=== PATIENT | male | born 1950 | race Caucasian/White ===

== ENCOUNTER → 2017-03-13 | Day surgery (SDC) | payer MEDICARE, OTHER ==
[2017-03-11 14:55] LABS: BASOPHILS % 0.2 % (0.0-1.0); EOSINOPHILS # (AUTO) 0.2 (0.0-0.4); EOSINOPHILS % 1.8 % (0.0-6.0); HEMATOCRIT 45.2 % (38.2-49.6); HEMOGLOBIN 15.3 g/dL (14.0-18.0); LYMPHOCYTES # (AUTO) 2.7 (1.0-3.2); LYMPHOCYTES % 30.5 % (18.0-39.1); MEAN CORPUSCULAR HEMOGLOBIN 31.3 pg (28-32); MEAN CORPUSCULAR HGB CONC 33.8 g/dL (31-35); MEAN CORPUSCULAR VOLUME 92.4 fL (81-99); MONOCYTES # (AUTO) 0.7 (0.2-0.8); MONOCYTES % 8.1 % (4.4-11.3); NEUTROPHILS # (AUTO) 5.2 (2.1-6.9); NEUTROPHILS % 59.1 % (38.7-80.0); PLATELET COUNT 205 x10e3/uL (140-360); RED BLOOD COUNT 4.89 x10e6/uL (4.3-5.7)
[~2017-03-13] MED LIST: ETODOLAC200 MG PO; FENTANYL CITRATE/PF 100MCG/2 ML INJ ONE; FEXOFENADINE H180 M1; HYDROCODONE; HYOSCYAMINE SULFATE 0.5 MG/ML AMP ONE; METFORMIN HCL500 M3 PO; MIDAZOLAM HCL 2 MG/2 ML VIAL ONE; PROPOFOL IV EMULSION 10 MG/ML 50 ML VIAL ONE; ULTRAM 50MG50 MG PO; Z COREG PO; Z.0.AVAPRO150 MG PO; Z.0.CELEBREX200 MG PO; Z.0.CYCLOBENZAPRINE1 PO; Z.0.LIPITOR20 MG PO; Z.0.LOVAZA1 GM PO; ZIAC1 UDTAB GT; [UNRECOGNIZED DRUG - OTHER]; [UNRECOGNIZED DRUG - OTHER] TD
--- NOTE | 2017-03-13 10:35 | Operative Report ---
DATE OF PROCEDURE: March 13, 2017 REFERRING PHYSICIAN: Dr. Julio Tracey PROCEDURES PERFORMED 1. Esophagogastroduodenoscopy with biopsies. 2. Colonoscopy with polypectomy and biopsies. INDICATIONS FOR EGD: Heartburn and indigestion. INDICATIONS FOR COLONOSCOPY: Colorectal cancer screening, personal history of colon polyps, history of intermittent bouts of diarrhea. MEDICATION: Patient was done under MAC. Please see anesthesiologist's note. PROCEDURE: With the patient in the left lateral decubitus position, the flexible fiberoptic Olympus gastroscope was introduced into the esophagus under direct visualization without any difficulty. The mucosa overlying the distal esophagus revealed some patchy areas of erythema. There was an approximately 5 mm sessile lesion in the distal esophagus and that was biopsied. The GE junction was nodular and that was biopsied. The scope was then advanced with ease into the stomach. Mucosa overlying the antrum and the body revealed some patchy erythema and mild to moderate edema, and biopsies were obtained and sent to stain for H. pylori. The pylorus appeared to be of normal contour and shape. It was intubated with ease. The scope was advanced all way to the 2nd portion of the duodenum. The scope was then withdrawn slowly. Mucosa overlying the proximal 2nd portion appeared to be within normal limits. One nodule was noted in the distal bulb and inferior wall, and that was biopsied. The scope was then withdrawn back into the stomach and retroflexed. A minute nodule was noted in the fundus and that was biopsied. The cardia appeared to be within normal limits. The scope was then straightened out. The stomach was decompressed. The scope was subsequently withdrawn. Patient tolerated the procedure well. IMPRESSION 1. Distal esophagitis. 2. Approximately, 5 mm sessile polypoid lesion in the distal esophagus, biopsied. 3. Nodular gastroesophageal junction, biopsied. 4. Gastritis, biopsied. Biopsies sent to stain for Helicobacter pylori. 5. Fundal nodule, minute, biopsied. 6. Duodenal bulb nodule, biopsied. PLAN: Follow up histology. Initiate Protonix 40 mg 1 p.o. q.a.m. a.c. Patient was then turned around. After adequate lubrication of the anal canal, a flexible fiberoptic Olympus colonoscope was inserted into the rectum with ease and advanced all the way to the cecum. Mucosa overlying the cecum appeared to be within normal limits. The ileocecal valve was intubated. The scope was advanced into the terminal ileum. Biopsies were obtained from the terminal ileum. The scope was then withdrawn back into the colon. It was then withdrawn slowly. Mucosa overlying the ascending and the transverse grossly appeared to be within normal limits as was the descending colon. There was some patchy areas of erythema and low-grade to moderate edema noted in the sigmoid colon, and biopsies were obtained. Diverticular disease was noted in the distal descending and the sigmoid colon. Two minute polyps were hot biopsied from the sigmoid colon. The mucosa overlying the rectum appeared to be within normal limits. The scope was then retroflexed into the distal rectum and the area around the dentate line appeared to be within normal limits. The scope was then straightened out. It was subsequently withdrawn after securing an adequate stool specimen that was sent for the appropriate stool studies. Patient tolerated the procedure well. IMPRESSION 1. Diverticulosis. 2. Segmental colitis, mild, sigmoid colon. 3. Sigmoid colon polyps times 2, hot biopsied. PLAN: Follow up histology. Follow up stool studies. Initiate Bentyl 10 mg 1 p.o. t.i.d. and VSL#3 one p.o. daily. Patient will need a followup colonoscopy in 3 years. Job#: [id number] RI cc:JULIO TRACEY M.D.
[2017-03-13 13:31] LABS: C DIFFICILE TOXIN A&B AMP PROB NEGATIVE (NEGATIVE); WBC,FECAL (FECAL LACTOFERRIN) NEGATIVE (NEGATIVE)
== END | disposition home or self-care (01) ==
LOC: OR 06:24
PROVIDERS: ATTEND Internal Medicine Gastroenterology
DX: Z12.11 Encounter for screening for malignant neoplasm of colon (principal); K63.5 Polyp of colon; K29.50 Unspecified chronic gastritis without bleeding; K50.10 Crohn's disease of large intestine without complications; K21.9 Gastro-esophageal reflux disease without esophagitis; K20.9 Esophagitis, unspecified; K22.8 Other specified diseases of esophagus; K31.89 Other diseases of stomach and duodenum; K57.30 Diverticulosis of large intestine without perforation or abscess without bleeding; I10 Essential (primary) hypertension; I45.10 Unspecified right bundle-branch block; E11.9 Type 2 diabetes mellitus without complications; F17.210 Nicotine dependence, cigarettes, uncomplicated; Z01.810 Encounter for preprocedural cardiovascular examination; Z01.812 Encounter for preprocedural laboratory examination
CPT/HCPCS: 36415 ×2; 43239; 45384; 82948; 83630; 83993; 85025; 87045; 87177; 87328; 87493; 88305; 88312; 93005; J1980; J2250; 45378

== ENCOUNTER → 2021-04-11 | Day surgery (SDC) | payer MEDICARE, OTHER ==
[2021-04-10 10:33] LABS: BASOPHILS # (AUTO) 0.1 (0.0-0.1); BASOPHILS % 0.5 % (0.0-1.0); EOSINOPHILS # (AUTO) 0.3 (0.0-0.4); EOSINOPHILS % 2.2 % (0.0-6.0); HEMATOCRIT 47.3 % (38.2-49.6); HEMOGLOBIN 15.3 g/dL (14.0-18.0); LYMPHOCYTES # (AUTO) 3.2 (1.0-3.2); LYMPHOCYTES % 28.3 % (18.0-39.1); MEAN CORPUSCULAR HEMOGLOBIN 30.5 pg (28-32); MEAN CORPUSCULAR HGB CONC 32.3 g/dL (31-35); MEAN CORPUSCULAR VOLUME 94.4 fL (81-99); MONOCYTES # (AUTO) 0.8 (0.2-0.8); NEUTROPHILS % 61.6 % (38.7-80.0); PLATELET COUNT 259 x10e3/uL (140-360); RED BLOOD COUNT 5.01 x10e6/uL (4.3-5.7)
[2021-04-10 11:08] LABS: ALBUMIN 3.9 g/dL (3.5-5.0); ALBUMIN/GLOBULIN RATIO 1.1 (0.8-2.0); CALCIUM 10.3 mg/dL (8.4-10.2); CREATININE, SERUM 1.37 mg/dL (0.72-1.25)
[~2021-04-11] MED LIST changes: +B&O 60MG R/S 60 MG SUPP PR ONE; +CARVEDILOL 10 MG CAPCR PO ONE; +CEFTRIAXONE 1 GM VIAL ONE; +CEFUROXIME250 MG PO; +CELEBREX100 MG PO; +DICYCLOMINE HCL10 MG PO; -HYOSCYAMINE SULFATE 0.5 MG/ML AMP ONE; +IOPAMIDOL 300MG/ML 50ML INFUS..BTL IV ONE; +LEVOFLOXACIN500 MG PO; +LEVOTHYROXINE50 MCG PO; +LIDOCAINE HCL 2% LOCAL INJ 5 ML SDV VIAL INJ ONE; +MULTI-VITAMIN1 EACH PO; +ONDANSETRON HCL INJ 2MG/ML 2ML 2 MG/ML VIAL ONE; +POVIDONE IODINE 0.05% 0.05 % ML PO ONE; +PROPOFOL IV EMULSION 10 MG/ML 20 ML VIAL ONE; -PROPOFOL IV EMULSION 10 MG/ML 50 ML VIAL ONE; +SEVOFLURANE INHAL SOLN 250 ML PEN BTL ONE; +SODIUM CHLORIDE 0.9% 50ML 100 ML ONE; +STOOL SOFTENER1 EAC2 PO; +TYLENOL # 31 EA PO; +VIT B12 PO; +VIT C PO; +VIT D PO
[2021-04-11 10:25] VITALS: BP 123/85
== END | disposition home or self-care (01) ==
LOC: OR 06:42
PROVIDERS: ATTEND Urology
DX: C67.1 Malignant neoplasm of dome of bladder (principal); N30.00 Acute cystitis without hematuria; N32.3 Diverticulum of bladder; N35.912 Unspecified bulbous urethral stricture, male; N32.89 Other specified disorders of bladder; D11.9 Benign neoplasm of major salivary gland, unspecified; I10 Essential (primary) hypertension; E03.9 Hypothyroidism, unspecified; K21.9 Gastro-esophageal reflux disease without esophagitis; M19.90 Unspecified osteoarthritis, unspecified site; F17.200 Nicotine dependence, unspecified, uncomplicated; Z01.810 Encounter for preprocedural cardiovascular examination; Z01.812 Encounter for preprocedural laboratory examination; Z01.818 Encounter for other preprocedural examination; Z20.822 Contact with and (suspected) exposure to COVID-19; Z79.84 Long term (current) use of oral hypoglycemic drugs; Z79.899 Other long term (current) drug therapy
CPT/HCPCS: 36415 ×2; 52005; 52214; 71046; 74420; 80053; 82948; 85025; 88305; 93005; C1758; J0696; J2001; J2250; J2405; J2704; J3010; Q9967; U0002

== ENCOUNTER 2022-04-17 07:15 | Inpatient (IN) | payer MEDICARE, OTHER ==
[~2022-04-17] VITALS: Ht 180.3 cm; Wt 92.2 kg
[2022-04-17] VITALS (7 sets, daily range): BP systolic 76–106; BP diastolic 42–59
[~2022-04-17 07:15] MED LIST changes: +ASPIRIN81 MG PO; -B&O 60MG R/S 60 MG SUPP PR ONE; +B12; -CARVEDILOL 10 MG CAPCR PO ONE; -CEFTRIAXONE 1 GM VIAL ONE; +CORICIDIN HBP1 EAC2 PO; -FENTANYL CITRATE/PF 100MCG/2 ML INJ ONE; +IMMUNO THERAPY; -IOPAMIDOL 300MG/ML 50ML INFUS..BTL IV ONE; -LIDOCAINE HCL 2% LOCAL INJ 5 ML SDV VIAL INJ ONE; -MIDAZOLAM HCL 2 MG/2 ML VIAL ONE; +MILK OF MA2400 MG/10 PO; -ONDANSETRON HCL INJ 2MG/ML 2ML 2 MG/ML VIAL ONE; -POVIDONE IODINE 0.05% 0.05 % ML PO ONE; -PROPOFOL IV EMULSION 10 MG/ML 20 ML VIAL ONE; -SEVOFLURANE INHAL SOLN 250 ML PEN BTL ONE; -SODIUM CHLORIDE 0.9% 50ML 100 ML ONE; +VITAMIN D
[2022-04-17] MEDS ORDERED: TIZANIDINE HCL4 M1 PO (07:26)
[2022-04-17 07:32] LABS: BASOPHILS % 0.2 % (0.0-1.0); EOSINOPHILS # (AUTO) 0.1 (0.0-0.4); EOSINOPHILS % 0.6 % (0.0-6.0); HEMATOCRIT 37.1 % (38.2-49.6); HEMOGLOBIN 12.3 g/dL (14.0-18.0); LYMPHOCYTES # (AUTO) 2.1 (1.0-3.2); LYMPHOCYTES % 15.8 % (18.0-39.1); MEAN CORPUSCULAR HGB CONC 33.2 g/dL (31-35); MEAN CORPUSCULAR VOLUME 84.5 fL (81-99); MONOCYTES # (AUTO) 1.2 (0.2-0.8); MONOCYTES % 9.2 % (4.4-11.3); NEUTROPHILS # (AUTO) 9.7 (2.1-6.9); NEUTROPHILS % 73.8 % (38.7-80.0); PLATELET COUNT 315 x10e3/uL (140-360); RED BLOOD COUNT 4.39 x10e6/uL (4.3-5.7); RED CELL DISTRIBUTION WIDTH 13.8 % (11.7-14.4)
[2022-04-17 07:57] LABS: ALBUMIN 3.1 g/dL (3.5-5.0); ALBUMIN/GLOBULIN RATIO 0.9 (0.8-2.0); ANION GAP 17.9 mmol/L (8-16); CALCIUM 9.2 mg/dL (8.4-10.2); CREATININE, SERUM 1.09 mg/dL (0.72-1.25); POTASSIUM 4.9 mmol/L (3.5-5.1)
[2022-04-17] MEDS ORDERED: PIPERACILLIN/TAZOBACTAM 3.375 GM VIAL ONE ×2 (08:05→19:08)
[2022-04-17] MEDS ORDERED: CLINDAMYCIN 600MG / 50ML 50 ML IV ONE (08:05)
[2022-04-17] MEDS ORDERED: GENTAMICIN 80MG/NS 100 ML 200 ML IV ONE (08:05)
[2022-04-17] MEDS ORDERED: IOPAMIDOL 370 MG/ML 100 ML INFUS..BTL INJ ONE (09:42)
[2022-04-17] MEDS ORDERED: BUPIVACAINE HCL 0.5% INJ 30 ML VIAL INJ ONE (09:42)
[2022-04-17] MEDS ORDERED: HEPARIN SOD/SOD CHLORIDE 1,000 ML ONE (09:49)
[2022-04-17 10:05] LABS: ANION GAP 15.3 mmol/L (8-16); CALCIUM 8.7 mg/dL (8.4-10.2); CREATININE, SERUM 0.97 mg/dL (0.72-1.25); POTASSIUM 4.3 mmol/L (3.5-5.1)
[2022-04-17 11:48] LABS: ABG HCO3 27 mmol/L (22-26); ABG PCO2 42 mmHg (35-45); ABG PH 7.42 (7.35-7.45); ABG PO2 251 mmHg (80-105); ABG TCO2 28
[2022-04-17] MEDS ORDERED: LIDOCAINE HCL 2% LOCAL INJ 5 ML SDV VIAL INJ ONE (12:20)
[2022-04-17] MEDS ORDERED: PROPOFOL IV EMULSION 10 MG/ML 20 ML VIAL ONE (12:20)
[2022-04-17] MEDS ORDERED: PHENYLEPHRINE HCL 1% 10 MG/ML VIAL ONE (12:20)
[2022-04-17] MEDS ORDERED: ACETAMINOPHEN 1000 MG/100 ML IV ONE (12:20)
[2022-04-17] MEDS ORDERED: DEXAMETHASONE SOD PHOS INJ 4 MG/ML SDV ONE (12:20)
[2022-04-17] MEDS ORDERED: SUGAMMADEX SODIUM 200 MG/2 ML VIAL IV ONE ×2 (12:20→14:36)
[2022-04-17] MEDS ORDERED: ONDANSETRON HCL INJ 2MG/ML 2ML 2 MG/ML VIAL ONE (12:20)
[2022-04-17] MEDS ORDERED: SEVOFLURANE INHAL SOLN 250 ML PEN BTL ONE (12:20)
[2022-04-17] MEDS ORDERED: METHOCARBAMOL 100MG/1ML 10ML VIAL ONE (12:20)
[2022-04-17] MEDS ORDERED: POVIDONE IODINE 0.05% 0.05 % ML PO ONE (12:20)
[2022-04-17] MEDS ORDERED: KETOROLAC TROMETHAMINE 30 MG/ML VIAL ONE (12:20)
[2022-04-17] MEDS ORDERED: ROCURONIUM BROMIDE 10 MG/ML 5ML VIAL IV ONE (12:20)
[2022-04-17] MEDS ORDERED: EPHEDRINE SULFATE INJ 50 MG/ML VIAL ONE (12:20)
[2022-04-17] MEDS ORDERED: FENTANYL CITRATE/PF 100MCG/2 ML INJ ONE (12:48)
[2022-04-17 12:53] LABS: ANION GAP 14.3 mmol/L (8-16); CALCIUM 7.8 mg/dL (8.4-10.2); CREATININE, SERUM 0.91 mg/dL (0.72-1.25); POTASSIUM 4.3 mmol/L (3.5-5.1)
[2022-04-17] MEDS ORDERED: ACETAMINOPHEN 1000 MG/100 ML IV PRN (14:00)
[2022-04-17] MEDS ORDERED: NALOXONE HCL INJ 0.4 MG/ML AMP IV PRN (14:00)
[2022-04-17] MEDS ORDERED: ONDANSETRON HCL INJ 2MG/ML 2ML 2 MG/ML VIAL IV PRN (14:00)
[2022-04-17] MEDS ORDERED: DIPHENHYDRAMINE HCL INJ 50 MG/ML VIAL IM PRN (14:00)
[2022-04-17] MEDS ORDERED: ROPIVACAINE 246.25 MG, EPINEPHRINE HCL 1:1000 1ML 0.5 MG, CLONIDINE HCL 0.08 MG, KETORO... INJ ONE ×5 (14:30)
[2022-04-17] MEDS ORDERED: HYDROMORPHONE 1MG/1ML INJ ONE ×2 (15:14→15:18)
[2022-04-17] MEDS: MORPHINE SULFATE 1 MG/ML 30ML PCA IV PRN (15:17)
[2022-04-17 15:45] LABS: BASOPHILS % 0.2 % (0.0-1.0); EOSINOPHILS % 0.2 % (0.0-6.0); HEMATOCRIT 36.6 % (38.2-49.6); HEMOGLOBIN 11.8 g/dL (14.0-18.0); LYMPHOCYTES # (AUTO) 1.3 (1.0-3.2); LYMPHOCYTES % 10.7 % (18.0-39.1); MEAN CORPUSCULAR HEMOGLOBIN 28.4 pg (28-32); MEAN CORPUSCULAR HGB CONC 32.2 g/dL (31-35); MEAN CORPUSCULAR VOLUME 88.2 fL (81-99); MONOCYTES # (AUTO) 0.7 (0.2-0.8); MONOCYTES % 5.7 % (4.4-11.3); NEUTROPHILS # (AUTO) 9.7 (2.1-6.9); NEUTROPHILS % 82.9 % (38.7-80.0); PLATELET COUNT 272 x10e3/uL (140-360); RED BLOOD COUNT 4.15 x10e6/uL (4.3-5.7); RED CELL DISTRIBUTION WIDTH 13.9 % (11.7-14.4)
[2022-04-17 16:01] LABS: ANION GAP 15.2 mmol/L (8-16); CREATININE, SERUM 1.05 mg/dL (0.72-1.25); POTASSIUM 4.2 mmol/L (3.5-5.1)
[2022-04-17] MEDS: SODIUM CHLORIDE 0.9% 250ML IRRIG IR SCH (18:00)
[2022-04-17] MEDS: NICOTINE 21 MG/EA PATCH TOP SCH (18:59)
[2022-04-17] MEDS: SODIUM CHLORIDE 0.9% 1000ML 1,000 ML IV SCH (18:59)
[2022-04-17] MEDS ORDERED: LACTATED RINGER'S 1,000 ML ONE (19:51)
[2022-04-17] MEDS ORDERED: LACTATED RINGER'S 500 ML IV SCH (20:15)
[2022-04-17] MEDS ORDERED: DEXTROSE 5% 50ML 50 ML IV ONE (21:00)
[2022-04-17] MEDS: Clindamycin INJ 300 MG/50 ML 50 ML IV SCH (21:19)
[2022-04-18] VITALS (67 sets, daily range): BP systolic 75–122; BP diastolic 38–97
[2022-04-18] MEDS: SODIUM CHLORIDE 0.9% 250ML IRRIG IR SCH ×7 (00:55→18:16)
[2022-04-18] MEDS: SODIUM CHLORIDE 0.9% 1000ML 1,000 ML IV SCH ×3 (03:47→20:48)
[2022-04-18] MEDS: Clindamycin INJ 300 MG/50 ML 50 ML IV SCH ×3 (04:30→19:52)
[2022-04-18 05:29] LABS: BASOPHILS % 0.1 % (0.0-1.0); HEMOGLOBIN 9.4 g/dL (14.0-18.0); LYMPHOCYTES # (AUTO) 0.9 (1.0-3.2); LYMPHOCYTES % 7.2 % (18.0-39.1); MEAN CORPUSCULAR HEMOGLOBIN 28.1 pg (28-32); MEAN CORPUSCULAR HGB CONC 32.4 g/dL (31-35); MEAN CORPUSCULAR VOLUME 86.6 fL (81-99); MONOCYTES # (AUTO) 0.8 (0.2-0.8); MONOCYTES % 5.9 % (4.4-11.3); NEUTROPHILS # (AUTO) 10.9 (2.1-6.9); NEUTROPHILS % 86.5 % (38.7-80.0); PLATELET COUNT 245 x10e3/uL (140-360); RED BLOOD COUNT 3.35 x10e6/uL (4.3-5.7); RED CELL DISTRIBUTION WIDTH 13.8 % (11.7-14.4)
[2022-04-18 05:57] LABS: CALCIUM 7.8 mg/dL (8.4-10.2); CREATININE, SERUM 1.12 mg/dL (0.72-1.25)
[2022-04-18] MEDS ORDERED: SODIUM CHLORIDE 0.9% 1000ML 1,000 ML IV ONE ×2 (09:00→11:45)
[2022-04-18] MEDS: NICOTINE 21 MG/EA PATCH TOP SCH (09:05)
[2022-04-18] MEDS: NOREPINEPHRINE 8 MG/D5W 250 ML 250 ML IV SCH (09:49)
[2022-04-18 13:05] LABS: BASOPHILS % 0.2 % (0.0-1.0); HEMATOCRIT 26.6 % (38.2-49.6); HEMOGLOBIN 8.7 g/dL (14.0-18.0); LYMPHOCYTES % 7.3 % (18.0-39.1); MEAN CORPUSCULAR HEMOGLOBIN 28.6 pg (28-32); MEAN CORPUSCULAR HGB CONC 32.7 g/dL (31-35); MEAN CORPUSCULAR VOLUME 87.5 fL (81-99); MONOCYTES % 7.2 % (4.4-11.3); NEUTROPHILS # (AUTO) 11.9 (2.1-6.9); NEUTROPHILS % 84.7 % (38.7-80.0); PLATELET COUNT 236 x10e3/uL (140-360); RED BLOOD COUNT 3.04 x10e6/uL (4.3-5.7); RED CELL DISTRIBUTION WIDTH 13.9 % (11.7-14.4)
[2022-04-18] MEDS: MORPHINE SULFATE 1 MG/ML 30ML PCA IV PRN (13:11)
[2022-04-18] MEDS ORDERED: CENTRAL TPN FORMULA 1 BAG IV SCH (20:00)
[2022-04-19] VITALS (54 sets, daily range): BP systolic 79–146; BP diastolic 45–143
[2022-04-19] MEDS: SODIUM CHLORIDE 0.9% 250ML IRRIG IR SCH ×7 (00:01→23:07)
[2022-04-19] MEDS: Clindamycin INJ 300 MG/50 ML 50 ML IV SCH ×3 (04:17→19:28)
[2022-04-19 05:01] LABS: BASOPHILS % 0.1 % (0.0-1.0); HEMATOCRIT 26.7 % (38.2-49.6); HEMOGLOBIN 8.5 g/dL (14.0-18.0); LYMPHOCYTES # (AUTO) 1.6 (1.0-3.2); MEAN CORPUSCULAR HEMOGLOBIN 28.3 pg (28-32); MEAN CORPUSCULAR HGB CONC 31.8 g/dL (31-35); MONOCYTES # (AUTO) 1.1 (0.2-0.8); MONOCYTES % 7.1 % (4.4-11.3); NEUTROPHILS # (AUTO) 12.9 (2.1-6.9); NEUTROPHILS % 82.4 % (38.7-80.0); PLATELET COUNT 226 x10e3/uL (140-360); RED CELL DISTRIBUTION WIDTH 14.1 % (11.7-14.4)
[2022-04-19 05:21] LABS: ANION GAP 11.3 mmol/L (8-16); CALCIUM 7.6 mg/dL (8.4-10.2); CREATININE, SERUM 0.95 mg/dL (0.72-1.25); POTASSIUM 4.3 mmol/L (3.5-5.1)
[2022-04-19] MEDS: SODIUM CHLORIDE 0.9% 1000ML 1,000 ML IV SCH ×2 (05:39→20:41)
[2022-04-19] MEDS: NOREPINEPHRINE 8 MG/D5W 250 ML 250 ML IV SCH (08:30)
[2022-04-19] MEDS: NICOTINE 21 MG/EA PATCH TOP SCH (09:50)
[2022-04-19] MEDS ORDERED: CENTRAL TPN FORMULA 1 BAG IV SCH (20:00)
[2022-04-20] VITALS (33 sets, daily range): BP systolic 94–133; BP diastolic 40–109
[2022-04-20] MEDS: SODIUM CHLORIDE 0.9% 250ML IRRIG IR SCH ×4 (01:52→13:02)
[2022-04-20] MEDS: Clindamycin INJ 300 MG/50 ML 50 ML IV SCH ×3 (05:00→19:22)
[2022-04-20 06:34] LABS: BASOPHILS % 0.1 % (0.0-1.0); EOSINOPHILS % 0.1 % (0.0-6.0); HEMATOCRIT 27.4 % (38.2-49.6); HEMOGLOBIN 8.8 g/dL (14.0-18.0); LYMPHOCYTES # (AUTO) 1.1 (1.0-3.2); LYMPHOCYTES % 7.4 % (18.0-39.1); MEAN CORPUSCULAR HEMOGLOBIN 28.2 pg (28-32); MEAN CORPUSCULAR HGB CONC 32.1 g/dL (31-35); MEAN CORPUSCULAR VOLUME 87.8 fL (81-99); MONOCYTES # (AUTO) 0.9 (0.2-0.8); MONOCYTES % 5.9 % (4.4-11.3); NEUTROPHILS # (AUTO) 13.2 (2.1-6.9); NEUTROPHILS % 85.8 % (38.7-80.0); PLATELET COUNT 242 x10e3/uL (140-360); RED BLOOD COUNT 3.12 x10e6/uL (4.3-5.7); RED CELL DISTRIBUTION WIDTH 14.1 % (11.7-14.4)
[2022-04-20 07:01] LABS: ANION GAP 11.9 mmol/L (8-16); CALCIUM 8.3 mg/dL (8.4-10.2); CREATININE, SERUM 0.81 mg/dL (0.72-1.25); POTASSIUM 3.9 mmol/L (3.5-5.1)
[2022-04-20] MEDS: NOREPINEPHRINE 8 MG/D5W 250 ML 250 ML IV SCH (08:30)
[2022-04-20] MEDS: MORPHINE SULFATE 1 MG/ML 30ML PCA IV PRN (08:48)
[2022-04-20] MEDS: NICOTINE 21 MG/EA PATCH TOP SCH (09:57)
[2022-04-20] MEDS: MUPIROCIN 2% OINT 22 GM TUBE TOP SCH ×2 (09:58→19:30)
[2022-04-20] MEDS: SODIUM CHLORIDE 0.9% 1000ML 1,000 ML IV SCH (12:47)
[2022-04-20] MEDS ORDERED: CENTRAL TPN FORMULA 1 BAG IV SCH (20:00)
[2022-04-20] MEDS: BISACODYL 10 MG SUPP PR SCH (21:00)
[2022-04-21] VITALS (12 sets, daily range): BP systolic 93–137; BP diastolic 54–90
[2022-04-21] MEDS: Clindamycin INJ 300 MG/50 ML 50 ML IV SCH ×3 (05:07→20:30)
[2022-04-21] MEDS: SODIUM CHLORIDE 0.9% 1000ML 1,000 ML IV SCH ×2 (05:56→20:29)
[2022-04-21 06:48] LABS: BASOPHILS % 0.1 % (0.0-1.0); EOSINOPHILS % 0.1 % (0.0-6.0); HEMATOCRIT 25.8 % (38.2-49.6); HEMOGLOBIN 8.5 g/dL (14.0-18.0); LYMPHOCYTES # (AUTO) 1.1 (1.0-3.2); LYMPHOCYTES % 7.8 % (18.0-39.1); MEAN CORPUSCULAR HEMOGLOBIN 28.3 pg (28-32); MEAN CORPUSCULAR HGB CONC 32.9 g/dL (31-35); MONOCYTES # (AUTO) 0.7 (0.2-0.8); MONOCYTES % 5.1 % (4.4-11.3); NEUTROPHILS # (AUTO) 12.4 (2.1-6.9); NEUTROPHILS % 86.4 % (38.7-80.0); PLATELET COUNT 250 x10e3/uL (140-360); RED CELL DISTRIBUTION WIDTH 13.9 % (11.7-14.4)
[2022-04-21 07:04] LABS: ANION GAP 11.4 mmol/L (8-16); CALCIUM 8.3 mg/dL (8.4-10.2); CREATININE, SERUM 0.74 mg/dL (0.72-1.25); POTASSIUM 3.4 mmol/L (3.5-5.1)
[2022-04-21] MEDS: BISACODYL 10 MG SUPP PR SCH ×2 (08:38→20:30)
[2022-04-21] MEDS: NICOTINE 21 MG/EA PATCH TOP SCH (08:38)
[2022-04-21] MEDS: MUPIROCIN 2% OINT 22 GM TUBE TOP SCH ×2 (08:38→19:30)
[2022-04-21] MEDS ORDERED: MORPHINE SULFATE 1 MG/ML 30ML PCA IV PRN (14:00)
[2022-04-21] MEDS ORDERED: CENTRAL TPN FORMULA 1 BAG IV SCH (20:00)
[2022-04-22] VITALS (7 sets, daily range): BP systolic 99–141; BP diastolic 52–85
[2022-04-22] MEDS: Clindamycin INJ 300 MG/50 ML 50 ML IV SCH (04:03)
[2022-04-22 05:14] LABS: BASOPHILS % 0.2 % (0.0-1.0); EOSINOPHILS # (AUTO) 0.2 (0.0-0.4); EOSINOPHILS % 1.3 % (0.0-6.0); HEMATOCRIT 25.6 % (38.2-49.6); HEMOGLOBIN 8.3 g/dL (14.0-18.0); LYMPHOCYTES # (AUTO) 1.3 (1.0-3.2); LYMPHOCYTES % 9.9 % (18.0-39.1); MEAN CORPUSCULAR HGB CONC 32.4 g/dL (31-35); MEAN CORPUSCULAR VOLUME 86.5 fL (81-99); MONOCYTES # (AUTO) 0.9 (0.2-0.8); MONOCYTES % 6.7 % (4.4-11.3); NEUTROPHILS # (AUTO) 10.3 (2.1-6.9); NEUTROPHILS % 81.3 % (38.7-80.0); PLATELET COUNT 254 x10e3/uL (140-360); RED BLOOD COUNT 2.96 x10e6/uL (4.3-5.7); RED CELL DISTRIBUTION WIDTH 13.7 % (11.7-14.4)
[2022-04-22 05:30] LABS: ANION GAP 11.6 mmol/L (8-16); CALCIUM 8.3 mg/dL (8.4-10.2); CREATININE, SERUM 0.71 mg/dL (0.72-1.25); POTASSIUM 3.6 mmol/L (3.5-5.1)
[2022-04-22] MEDS: MUPIROCIN 2% OINT 22 GM TUBE TOP SCH ×2 (07:30→18:21)
[2022-04-22] MEDS: BISACODYL 10 MG SUPP PR SCH (08:00)
[2022-04-22] MEDS ORDERED: ONDANSETRON HCL INJ 2MG/ML 2ML 2 MG/ML VIAL IV PRN (08:45)
[2022-04-22] MEDS: SENNA-S TABLET PO SCH ×2 (09:00→17:00)
[2022-04-22] MEDS ORDERED: TAMSULOSIN HCL 0.4 MG CAP PO ONE (09:00)
[2022-04-22] MEDS ORDERED: BISACODYL 10 MG SUPP PR ONE (10:03)
[2022-04-22] MEDS: NICOTINE 21 MG/EA PATCH TOP SCH (12:55)
[2022-04-22] MEDS: HYDROMORPHONE 1MG/1ML INJ IV PRN ×2 (13:21→22:15)
[2022-04-22] MEDS: HYDROCODONE/APAP 10MG-325MG TAB PO PRN (19:28)
[2022-04-22] MEDS: CENTRAL TPN FORMULA 1 BAG IV SCH (20:00)
[2022-04-22] MEDS: TAMSULOSIN HCL 0.4 MG CAP PO SCH (21:28)
[2022-04-23] VITALS: BP 121/79
[2022-04-23 06:00] VITALS: BP 116/77
[2022-04-23] MEDS: MUPIROCIN 2% OINT 22 GM TUBE TOP SCH ×2 (07:30→19:30)
[2022-04-23] MEDS: NICOTINE 21 MG/EA PATCH TOP SCH (09:26)
[2022-04-23] MEDS: SENNA-S TABLET PO SCH ×2 (09:26→17:02)
[2022-04-23] MEDS: HYDROMORPHONE 1MG/1ML INJ IV PRN ×2 (11:34→19:55)
[2022-04-23 12:41] VITALS: BP 120/79
[2022-04-23 16:33] VITALS: BP 122/63
[2022-04-23 20:00] VITALS: BP 117/70
[2022-04-23] MEDS: TAMSULOSIN HCL 0.4 MG CAP PO SCH (20:11)
[2022-04-23] MEDS: CENTRAL TPN FORMULA 1 BAG IV SCH (20:15)
[2022-04-24] VITALS (10 sets, daily range): BP systolic 108–122; BP diastolic 60–76
[2022-04-24] MEDS: HYDROCODONE/APAP 10MG-325MG TAB PO PRN (00:44)
[2022-04-24] MEDS: HYDROMORPHONE 1MG/1ML INJ IV PRN ×2 (03:54→11:58)
[2022-04-24 06:00] LABS: BASOPHILS % 0.2 % (0.0-1.0); EOSINOPHILS # (AUTO) 0.2 (0.0-0.4); EOSINOPHILS % 1.8 % (0.0-6.0); HEMATOCRIT 24.3 % (38.2-49.6); HEMOGLOBIN 7.9 g/dL (14.0-18.0); LYMPHOCYTES # (AUTO) 1.6 (1.0-3.2); LYMPHOCYTES % 12.5 % (18.0-39.1); MEAN CORPUSCULAR HEMOGLOBIN 28.3 pg (28-32); MEAN CORPUSCULAR HGB CONC 32.5 g/dL (31-35); MEAN CORPUSCULAR VOLUME 87.1 fL (81-99); MONOCYTES # (AUTO) 0.8 (0.2-0.8); MONOCYTES % 6.4 % (4.4-11.3); NEUTROPHILS # (AUTO) 9.8 (2.1-6.9); NEUTROPHILS % 78.3 % (38.7-80.0); PLATELET COUNT 371 x10e3/uL (140-360); RED BLOOD COUNT 2.79 x10e6/uL (4.3-5.7)
[2022-04-24 06:54] LABS: ALBUMIN 1.5 g/dL (3.5-5.0); ALBUMIN/GLOBULIN RATIO 0.5 (0.8-2.0); CALCIUM 8.1 mg/dL (8.4-10.2); CREATININE, SERUM 0.76 mg/dL (0.72-1.25); MAGNESIUM 1.5 MG/DL (1.3-2.1); PHOSPHORUS 2.2 MG/DL (2.3-4.7)
[2022-04-24] MEDS ORDERED: MAGNESIUM SULFATE 2GM/50ML IV ONE (08:15)
[2022-04-24] MEDS: NICOTINE 21 MG/EA PATCH TOP SCH (08:21)
[2022-04-24] MEDS: SENNA-S TABLET PO SCH ×2 (08:21→16:59)
[2022-04-24] MEDS ORDERED: MAGNESIUM SULFATE 2GM/50ML 50 ML IV ONE (09:00)
[2022-04-24] MEDS ORDERED: POTASSIUM CHLORIDE 10MEQ EA PO ONE (09:00)
[2022-04-24] MEDS: DEXTROSE 5%/0.45% SOD CHL 1,000 ML IV SCH (09:55)
[2022-04-24] MEDS ORDERED: MAGNESIUM HYDROXIDE 30 ML UDC PO ONE (10:15)
[2022-04-24] MEDS: MUPIROCIN 2% OINT 22 GM TUBE TOP SCH ×2 (10:26→19:30)
[2022-04-24] MEDS ORDERED: POTASSIUM PHOSPHATE 20 MM in SODIUM CHLORIDE 0.9% 250ML 250 ML IV ONE (11:00)
[2022-04-24] MEDS: HYDROCODONE/APAP 7.5MG-325MG 1 EA TAB PO PRN ×2 (16:26→21:07)
[2022-04-24] MEDS: TAMSULOSIN HCL 0.4 MG CAP PO SCH (21:07)
[2022-04-25] VITALS (12 sets, daily range): BP systolic 101–122; BP diastolic 59–70
[2022-04-25] MEDS: HYDROCODONE/APAP 7.5MG-325MG 1 EA TAB PO PRN ×2 (02:37→10:10)
[2022-04-25] MEDS: DEXTROSE 5%/0.45% SOD CHL 1,000 ML IV SCH (06:05)
[2022-04-25 06:44] LABS: ALBUMIN 1.6 g/dL (3.5-5.0); ALBUMIN/GLOBULIN RATIO 0.5 (0.8-2.0); ANION GAP 11.5 mmol/L (8-16); CREATININE, SERUM 0.7 mg/dL (0.72-1.25); MAGNESIUM 1.7 MG/DL (1.3-2.1); PHOSPHORUS 2.4 MG/DL (2.3-4.7); POTASSIUM 3.5 mmol/L (3.5-5.1)
[2022-04-25] MEDS: NICOTINE 21 MG/EA PATCH TOP SCH (08:47)
[2022-04-25] MEDS: MUPIROCIN 2% OINT 22 GM TUBE TOP SCH ×2 (08:48→21:27)
[2022-04-25] MEDS: SENNA-S TABLET PO SCH ×2 (08:50→17:00)
[2022-04-25] MEDS: TAMSULOSIN HCL 0.4 MG CAP PO SCH (21:26)
[2022-04-26] VITALS (7 sets, daily range): BP systolic 110–126; BP diastolic 65–83
[2022-04-26] MEDS: HYDROCODONE/APAP 7.5MG-325MG 1 EA TAB PO PRN ×4 (02:07→22:04)
[2022-04-26 04:59] LABS: BASOPHILS # (AUTO) 0.1 (0.0-0.1); BASOPHILS % 0.5 % (0.0-1.0); EOSINOPHILS # (AUTO) 0.2 (0.0-0.4); EOSINOPHILS % 1.5 % (0.0-6.0); HEMATOCRIT 25.8 % (38.2-49.6); HEMOGLOBIN 8.4 g/dL (14.0-18.0); LYMPHOCYTES # (AUTO) 1.6 (1.0-3.2); LYMPHOCYTES % 14.5 % (18.0-39.1); MEAN CORPUSCULAR HEMOGLOBIN 28.4 pg (28-32); MEAN CORPUSCULAR HGB CONC 32.6 g/dL (31-35); MEAN CORPUSCULAR VOLUME 87.2 fL (81-99); MONOCYTES # (AUTO) 0.7 (0.2-0.8); MONOCYTES % 6.2 % (4.4-11.3); NEUTROPHILS # (AUTO) 8.4 (2.1-6.9); NEUTROPHILS % 76.7 % (38.7-80.0); PLATELET COUNT 393 x10e3/uL (140-360); RED BLOOD COUNT 2.96 x10e6/uL (4.3-5.7); RED CELL DISTRIBUTION WIDTH 14.4 % (11.7-14.4)
[2022-04-26] MEDS: MUPIROCIN 2% OINT 22 GM TUBE TOP SCH ×2 (07:30→21:05)
[2022-04-26] MEDS ORDERED: HYDROMORPHONE 1MG/1ML INJ IV PRN (09:00)
[2022-04-26] MEDS: PANTOPRAZOLE SOD 40 MG TABEC PO SCH (09:16)
[2022-04-26] MEDS: NICOTINE 21 MG/EA PATCH TOP SCH (09:16)
[2022-04-26] MEDS: SENNA-S TABLET PO SCH ×2 (09:17→17:41)
[2022-04-26] MEDS: IRON SUCROSE 100 MG in SODIUM CHLORIDE 0.9% 100 ML IV SCH (11:02)
[2022-04-26] MEDS: TAMSULOSIN HCL 0.4 MG CAP PO SCH (21:01)
[2022-04-27] VITALS (7 sets, daily range): BP systolic 99–134; BP diastolic 57–73
[2022-04-27] MEDS: HYDROCODONE/APAP 7.5MG-325MG 1 EA TAB PO PRN ×4 (02:06→21:15)
[2022-04-27] MEDS: IRON SUCROSE 100 MG in SODIUM CHLORIDE 0.9% 100 ML IV SCH (10:00)
[2022-04-27] MEDS: NICOTINE 21 MG/EA PATCH TOP SCH (10:08)
[2022-04-27] MEDS: SENNA-S TABLET PO SCH ×2 (10:08→16:23)
[2022-04-27] MEDS: PANTOPRAZOLE SOD 40 MG TABEC PO SCH (10:08)
[2022-04-27] MEDS: TAMSULOSIN HCL 0.4 MG CAP PO SCH (21:15)
[2022-04-28] VITALS (7 sets, daily range): BP systolic 103–112; BP diastolic 55–68
[2022-04-28] MEDS: HYDROCODONE/APAP 7.5MG-325MG 1 EA TAB PO PRN ×5 (01:24→23:56)
[2022-04-28 05:43] LABS: BASOPHILS # (AUTO) 0.1 (0.0-0.1); BASOPHILS % 0.4 % (0.0-1.0); EOSINOPHILS # (AUTO) 0.2 (0.0-0.4); EOSINOPHILS % 1.6 % (0.0-6.0); HEMATOCRIT 26.2 % (38.2-49.6); HEMOGLOBIN 8.4 g/dL (14.0-18.0); LYMPHOCYTES # (AUTO) 1.6 (1.0-3.2); LYMPHOCYTES % 13.9 % (18.0-39.1); MEAN CORPUSCULAR HEMOGLOBIN 28.1 pg (28-32); MEAN CORPUSCULAR HGB CONC 32.1 g/dL (31-35); MEAN CORPUSCULAR VOLUME 87.6 fL (81-99); MONOCYTES # (AUTO) 0.7 (0.2-0.8); MONOCYTES % 5.7 % (4.4-11.3); NEUTROPHILS % 77.9 % (38.7-80.0); PLATELET COUNT 513 x10e3/uL (140-360); RED BLOOD COUNT 2.99 x10e6/uL (4.3-5.7); RED CELL DISTRIBUTION WIDTH 14.7 % (11.7-14.4)
[2022-04-28 06:01] LABS: ALBUMIN 1.9 g/dL (3.5-5.0); ALBUMIN/GLOBULIN RATIO 0.6 (0.8-2.0); ANION GAP 12.3 mmol/L (8-16); CALCIUM 8.1 mg/dL (8.4-10.2); CREATININE, SERUM 0.73 mg/dL (0.72-1.25); POTASSIUM 3.3 mmol/L (3.5-5.1)
[2022-04-28] MEDS: SENNA-S TABLET PO SCH ×2 (09:04→16:45)
[2022-04-28] MEDS: PANTOPRAZOLE SOD 40 MG TABEC PO SCH (09:04)
[2022-04-28] MEDS: NICOTINE 21 MG/EA PATCH TOP SCH (09:05)
[2022-04-28] MEDS: IRON SUCROSE 100 MG in SODIUM CHLORIDE 0.9% 100 ML IV SCH (09:09)
[2022-04-28] MEDS: TAMSULOSIN HCL 0.4 MG CAP PO SCH (21:32)
[2022-04-29] VITALS: BP 101/62
[2022-04-29 04:00] VITALS: BP 115/63
[2022-04-29 07:53] VITALS: BP 120/67
[2022-04-29 08:00] VITALS: BP 120/67
[2022-04-29 08:33] VITALS: BP 120/67
[2022-04-29] MEDS: PANTOPRAZOLE SOD 40 MG TABEC PO SCH (08:42)
[2022-04-29] MEDS: IRON SUCROSE 100 MG in SODIUM CHLORIDE 0.9% 100 ML IV SCH (08:44)
[2022-04-29] MEDS: SENNA-S TABLET PO SCH ×2 (08:44→12:09)
[2022-04-29] MEDS: NICOTINE 21 MG/EA PATCH TOP SCH (08:44)
[2022-04-29] MEDS ORDERED: ONDANSETRON HCL 4 MG ORAL DISINTEGRATING TAB PO PRN (11:45)
[2022-04-29 17:08] VITALS: BP 111/65
== END 2022-04-29 17:58 | DRG 653 ==
LOC: OR 07:15 → PACU V 13:52 → ICU 18:32 → MED/SURG 04-21 13:25
PROVIDERS: ADMIT Surgery; ATTEND Surgery
PROC: 0DTN0ZZ Resection of Sigmoid Colon, Open Approach (ICD-10-PCS; principal; 2022-04-17 10:17)
PROC: 0TBB0ZZ Excision of Bladder, Open Approach (ICD-10-PCS; 2022-04-17 10:17)
PROC: 3E0436Z Introduction of Nutritional Substance into Central Vein, Percutaneous Approach (ICD-10-PCS; 2022-04-22)
DX: N32.1 Vesicointestinal fistula (principal); K57.21 Diverticulitis of large intestine with perforation and abscess with bleeding; E44.0 Moderate protein-calorie malnutrition; I95.81 Postprocedural hypotension; Z20.822 Contact with and (suspected) exposure to COVID-19; Z68.28 Body mass index [BMI] 28.0-28.9, adult; Z85.51 Personal history of malignant neoplasm of bladder; E11.9 Type 2 diabetes mellitus without complications; N40.0 Benign prostatic hyperplasia without lower urinary tract symptoms; I10 Essential (primary) hypertension; R94.5 Abnormal results of liver function studies; D64.9 Anemia, unspecified; G89.18 Other acute postprocedural pain; I35.0 Nonrheumatic aortic (valve) stenosis; E03.9 Hypothyroidism, unspecified; M06.9 Rheumatoid arthritis, unspecified; N40.1 Benign prostatic hyperplasia with lower urinary tract symptoms; R39.15 Urgency of urination; R35.0 Frequency of micturition
CPT/HCPCS: 0223U; 36415; 36600; 71045; 71046; 74420; 80048; 80053; 82805; 82948; 83735; 84100; 85014; 85025; 87086; 88305; 88307; 94799; 99252; C1758; C1769; J0171; J1100; J1170; J1580; J1756; J1885; J2001; J2270; J2370; J2405; J2543; J2795; J2800; J3010; J3475; J7030; J7050; J7121; Q9967

== ENCOUNTER 2024-09-07 08:53 | Inpatient (IN) | payer MEDICARE, OTHER ==
[~2024-09-07] VITALS: Ht 177.8 cm; Wt 70.8 kg
[~2024-09-07 08:53] MED LIST changes: +TIZANIDINE HCL4 M1 PO
[2024-09-07 09:03] VITALS: TEMP 98.4
[2024-09-07 09:55] LABS: BASOPHILS % 0.3 % (0.0-1.0); EOSINOPHILS % 0.1 % (0.0-6.0); LYMPHOCYTES % 13.8 % (18.0-39.1); MONOCYTES % 8.3 % (4.4-11.3); NEUTROPHILS % 77.1 % (38.7-80.0); RED CELL DISTRIBUTION WIDTH 14.3 % (11.7-14.4)
[2024-09-07] MEDS: SODIUM CHLORIDE 0.9% IV SCH (10:03)
[2024-09-07] MEDS: ONDANSETRON HCL INJ 2MG/ML 2ML 2 MG/ML VIAL IV STA (10:03)
[2024-09-07] MEDS: Morphine 4mg INJECTION 4 MG/ML INJ IV STA (10:03)
[2024-09-07 10:14] LABS: EST GLOMERULAR FILTRATION RATE 44.0 ML/MIN (>=60); INR 0.89
[2024-09-07] MEDS ORDERED: IOPAMIDOL 370 MG/ML 100 ML INFUS..BTL INJ ONE (11:12)
[2024-09-07 12:00] VITALS: PULSE 111; RESP 22
[2024-09-07 12:29] LABS: LEUKOCYTE ESTERASE ,URINE NEGATIVE (NEGATIVE); PROTEIN,URINE DIPSTICK NEGATIVE (NEGATIVE); URINE UROBILINOGEN 0.2 mg/dL (0.2 - 1)
[2024-09-07 12:44] LABS: EPITHELIAL CELLS,URINE MODERATE /LPF
[2024-09-07 12:45] LABS: WBC,URINE (MAN) 21-50 /HPF (0-5)
[2024-09-07] MEDS: SODIUM CHLORIDE 0.9% 1000ML 1,000 ML IV SCH (12:45)
[2024-09-07] MEDS: SODIUM CHLORIDE 0.9% 250ML IRRIG IR SCH (12:45)
[2024-09-07] MEDS: Morphine 4mg INJECTION 4 MG/ML INJ IV PRN (15:12)
[2024-09-07 15:46] VITALS: BP 105/63; PULSE 106; RESP 20; TEMP 97.9; O2SAT 99
[2024-09-07 16:07] VITALS: BP 105/63; PULSE 106; RESP 20; TEMP 97.9; O2SAT 99
[2024-09-07 17:39] VITALS: BP 105/63; PULSE 70; RESP 20; TEMP 97.9; O2SAT 99
[2024-09-07] MEDS ORDERED: NEURONTIN300 MG PO (18:44)
[2024-09-07] MEDS ORDERED: FLOMAX0.4 MG PO (18:45)
[2024-09-07 20:46] VITALS: BP 123/75; PULSE 107; RESP 18; TEMP 97.6; O2SAT 100
[2024-09-07] MEDS: ONDANSETRON HCL INJ 2MG/ML 2ML 2 MG/ML VIAL IV PRN (23:52)
[2024-09-08 00:22] VITALS: BP 138/77; PULSE 107; RESP 17; TEMP 97.3; O2SAT 98
[2024-09-08] MEDS: MAGNESIUM HYDROXIDE 30 ML UDC PO STA (01:02)
[2024-09-08] MEDS: METOCLOPRAMIDE HCL 10 MG/2ML VIAL IV SCH (01:03)
[2024-09-08 08:36] VITALS: BP 119/73; PULSE 86; RESP 19; TEMP 98.1; O2SAT 95
[2024-09-08 08:53] LABS: EST GLOMERULAR FILTRATION RATE 58.0 ML/MIN (>=60)
[2024-09-08 10:31] LABS: BASOPHILS % 1.4 % (0.0-1.0); EOSINOPHILS % 0.3 % (0.0-6.0); LYMPHOCYTES % 20.8 % (18.0-39.1); MONOCYTES % 24.6 % (4.4-11.3); NEUTROPHILS % 52.9 % (38.7-80.0); RED CELL DISTRIBUTION WIDTH 14.5 % (11.7-14.4)
[2024-09-08 11:32] VITALS: BP 119/73; PULSE 86; RESP 19; TEMP 98.1; O2SAT 95
[2024-09-08] MEDS: MAGNESIUM HYDROXIDE 30 ML UDC PO SCH (12:04)
[2024-09-08 12:30] VITALS: BP 99/65; PULSE 119; RESP 19; TEMP 98.8; O2SAT 97
[2024-09-08 16:05] VITALS: BP 90/71; PULSE 117; RESP 19; TEMP 98.5; O2SAT 99
[2024-09-08 17:02] LABS: ABG HCO3 21 mmol/L (22-26); ABG OXYGEN SATURATION 95.0 % (95-98); ABG PCO2 36 mmHg (35-45); ABG PH 7.38 (7.35-7.45); ABG PO2 74 mmHg (80-105); ABG TCO2 22
[2024-09-08 18:47] LABS: BAND NEUTROPHILS % (MANUAL) 28 %; BASOPHILS % (MANUAL) 1 % (0-1.5); LYMPHOCYTES % (MANUAL) 26 % (19-48); METAMYELOCYTES % (MANUAL) 6 % (0-0); MONOCYTES % (MANUAL) 14 % (3.4-9.0); NEUTROPHILS % (MANUAL) 22 % (40-74); REACTIVE LYMPHOCYTES 3
[2024-09-08 18:50] LABS: PLATELET MORPHOLOGY COMMENT NORMAL
[2024-09-08 18:51] LABS: PLATELET ESTIMATE ADEQUATE; RBC MORPHOLOGY COMMENT NORMAL
[2024-09-08 20:00] VITALS: BP 100/60; PULSE 110; RESP 18; TEMP 97.6; O2SAT 98
[2024-09-08] MEDS ORDERED: SODIUM BICARBONATE 8.4% VIAL 50 ML in SODIUM CHLORIDE 0.45% 1,000 ML IV SCH (20:00)
[2024-09-08] MEDS: SODIUM BICARBONATE 8.4% VIAL 50 ML in SODIUM CHLORIDE 0.45% 1,000 ML IV ONE (20:02)
[2024-09-09] VITALS (7 sets, daily range): BP systolic 100–127; BP diastolic 58–76; PULSE 106–116; RESP 16–20; TEMP 97.3–98.1; O2SAT 96–100
[2024-09-09] MEDS: MINERAL OIL 132 ML BTL PR ONE ×2 (00:41→05:37)
[2024-09-10] VITALS (43 sets, daily range): BP systolic 63–144; BP diastolic 35–79; PULSE 97–125; RESP 12–28; TEMP 97–97.9; O2SAT 95–100
[2024-09-10 06:39] LABS: BASOPHILS % 0.8 % (0.0-1.0); EOSINOPHILS % 0.5 % (0.0-6.0); LYMPHOCYTES % 14.5 % (18.0-39.1); MONOCYTES % 17.0 % (4.4-11.3); NEUTROPHILS % 66.7 % (38.7-80.0); RED CELL DISTRIBUTION WIDTH 15.0 % (11.7-14.4)
[2024-09-10 06:55] LABS: EST GLOMERULAR FILTRATION RATE 62.0 ML/MIN (>=60)
[2024-09-10 08:52] LABS: BAND NEUTROPHILS % (MANUAL) 4 %; EOSINOPHILS % (MANUAL) 3 % (0-7); LYMPHOCYTES % (MANUAL) 12 % (19-48); MONOCYTES % (MANUAL) 17 % (3.4-9.0); NEUTROPHILS % (MANUAL) 61 % (40-74); PLATELET ESTIMATE ADEQUATE; PLATELET MORPHOLOGY COMMENT NORMAL; RBC MORPHOLOGY COMMENT NORMAL; REACTIVE LYMPHOCYTES 3
[2024-09-10] MEDS ORDERED: GADOBENATE DIMEGLUMINE 0 ML IV ONE (10:10)
[2024-09-10] MEDS ORDERED: SUCCINYLCHOLINE CHLORIDE 20 MG/ML 10ML VIAL ONE (11:32)
[2024-09-10] MEDS ORDERED: PROPOFOL IV EMULSION 10 MG/ML 20 ML VIAL ONE (11:32)
[2024-09-10] MEDS ORDERED: LIDOCAINE HCL 2% LOCAL INJ 5 ML SDV VIAL INJ ONE (11:32)
[2024-09-10] MEDS ORDERED: ROCURONIUM BROMIDE 1 ML IV ONE ×2 (11:33→13:35)
[2024-09-10] MEDS ORDERED: FENTANYL CITRATE/PF 100MCG/2 ML INJ ONE (11:33)
[2024-09-10] MEDS ORDERED: DEXMEDETOMIDINE HCL 2 ML ONE (11:37)
[2024-09-10] MEDS ORDERED: SODIUM CHLORIDE 0.9% 100 ML ONE (11:38)
[2024-09-10] MEDS ORDERED: SUGAMMADEX SODIUM 200 MG/2 ML VIAL IV ONE (11:40)
[2024-09-10] MEDS ORDERED: VASOPRESSIN INJ 20 UNIT/ML VIAL ONE (12:25)
[2024-09-10] MEDS ORDERED: NOREPINEPHRINE 8 MG/D5W 250 ML 250 ML ONE (14:49)
[2024-09-10] MEDS ORDERED: DEXAMETHASONE SOD PHOS INJ 4 MG/ML SDV ONE (15:44)
[2024-09-10] MEDS ORDERED: ONDANSETRON HCL INJ 2MG/ML 2ML 2 MG/ML VIAL ONE (15:44)
[2024-09-10] MEDS: SODIUM CHLORIDE 0.9% 250ML IRRIG IR SCH (15:45)
[2024-09-10] MEDS ORDERED: FENTANYL 2000MCG/NS 250 250 ML IV PRN (16:15)
[2024-09-10] MEDS: SODIUM CHLORIDE 0.45% 1,000 ML IV SCH ×2 (16:45→19:25)
[2024-09-10] MEDS: SODIUM CHLORIDE 0.9% 100 ML ONE (16:51)
[2024-09-10] MEDS: PIPERACILLIN/TAZOBACTAM 3.375 GM VIAL ONE (16:51)
[2024-09-10] MEDS: NOREPINEPHRINE 8 MG/D5W 250 ML 250 ML IV SCH (16:55)
[2024-09-10] MEDS: ALBUMIN 5% 250ML 250 ML ONE (17:02)
[2024-09-10] MEDS: SODIUM CHLORIDE 0.9% 1000ML 1,000 ML ONE ×2 (17:02→19:20)
[2024-09-10] MEDS: ALBUMIN 5% 0.05 GM/ML BTL IV ONE ×3 (17:03→19:25)
[2024-09-10 17:12] LABS: ABG BASE EXCESS 1.0 mmol/L (-2 - 3); ABG HCO3 25 mmol/L (22-26); ABG OXYGEN SATURATION 99.0 % (95-98); ABG PCO2 47 mmHg (35-45); ABG PH 7.36 (7.35-7.45); ABG PO2 149 mmHg (80-105); ABG TCO2 28
[2024-09-10] MEDS: FENTANYL 2000MCG/NS 250 250 ML ONE (19:19)
[2024-09-10] MEDS: MUPIROCIN 2% OINT 22 GM TUBE TOP SCH (20:23)
[2024-09-10] MEDS: MEROPENEM 1 GM in SODIUM CHLORIDE 0.9% 100 ML IV SCH (21:18)
[2024-09-10] MEDS: HYDROMORPHONE 1MG/1ML INJ IV PRN (22:35)
[2024-09-11] VITALS (93 sets, daily range): BP systolic 75–127; BP diastolic 46–74; PULSE 91–122; RESP 12–22; TEMP 97.5–98.1; O2SAT 89–100
[2024-09-11 07:01] LABS: BASOPHILS % 0.6 % (0.0-1.0); EOSINOPHILS % 0.0 % (0.0-6.0); LYMPHOCYTES % 10.4 % (18.0-39.1); MONOCYTES % 5.4 % (4.4-11.3); NEUTROPHILS % 82.8 % (38.7-80.0); RED CELL DISTRIBUTION WIDTH 15.0 % (11.7-14.4)
[2024-09-11 07:31] LABS: EST GLOMERULAR FILTRATION RATE 50.0 ML/MIN (>=60)
[2024-09-11 07:40] LABS: CHOL/HDL RATIO 2.8 (3.9-4.7); LDL CHOLESTEROL 11.0 MG/DL (60-130); PHOSPHORUS 1.9 MG/DL (2.3-4.7)
[2024-09-11] MEDS: COLLAGENASE 5 GM TUBE TOP SCH (10:14)
[2024-09-11 10:20] LABS: ABG BASE EXCESS -4.0 mmol/L (-2 - 3); ABG HCO3 21 mmol/L (22-26); ABG OXYGEN SATURATION 100.0 % (95-98); ABG PCO2 33 mmHg (35-45); ABG PH 7.41 (7.35-7.45); ABG PO2 172 mmHg (80-105); ABG TCO2 22
[2024-09-11 10:57] LABS: ABG BASE EXCESS 1.0 mmol/L (-2 - 3); ABG HCO3 26 mmol/L (22-26); ABG OXYGEN SATURATION 99.0 % (95-98); ABG PCO2 44 mmHg (35-45); ABG PH 7.39 (7.35-7.45); ABG PO2 146 mmHg (80-105); ABG TCO2 28
[2024-09-11 11:52] LABS: BAND NEUTROPHILS % (MANUAL) 1 %; LYMPHOCYTES % (MANUAL) 18 % (19-48); MONOCYTES % (MANUAL) 3 % (3.4-9.0); NEUTROPHILS % (MANUAL) 78 % (40-74); PLATELET ESTIMATE ADEQUATE; PLATELET MORPHOLOGY COMMENT NORMAL
[2024-09-11] MEDS: ACETAMINOPHEN 1000 MG/100 ML IV PRN (11:56)
[2024-09-12] VITALS (37 sets, daily range): BP systolic 82–137; BP diastolic 40–78; PULSE 39–130; RESP 16–26; TEMP 98.5–98.7; O2SAT 73–100
[2024-09-12 06:38] LABS: BASOPHILS % 0.0 % (0.0-1.0); EOSINOPHILS % 0.0 % (0.0-6.0); LYMPHOCYTES % 4.8 % (18.0-39.1); MONOCYTES % 3.0 % (4.4-11.3); NEUTROPHILS % 90.5 % (38.7-80.0); RED CELL DISTRIBUTION WIDTH 14.6 % (11.7-14.4)
[2024-09-12 07:06] LABS: EST GLOMERULAR FILTRATION RATE 37.0 ML/MIN (>=60)
[2024-09-12 10:19] LABS: ABG BASE EXCESS -1.0 mmol/L (-2 - 3); ABG HCO3 23 mmol/L (22-26); ABG OXYGEN SATURATION 91.0 % (95-98); ABG PCO2 35 mmHg (35-45); ABG PH 7.43 (7.35-7.45); ABG PO2 59 mmHg (80-105); ABG TCO2 24
[2024-09-12 10:24] LABS: ABG BASE EXCESS -2.0 mmol/L (-2 - 3); ABG HCO3 24 mmol/L (22-26); ABG OXYGEN SATURATION 99.0 % (95-98); ABG PCO2 43 mmHg (35-45); ABG PH 7.36 (7.35-7.45); ABG PO2 128 mmHg (80-105); ABG TCO2 25
[2024-09-12 11:52] LABS: BAND NEUTROPHILS % (MANUAL) 58 %; LYMPHOCYTES % (MANUAL) 3 % (19-48); METAMYELOCYTES % (MANUAL) 3 % (0-0); MONOCYTES % (MANUAL) 2 % (3.4-9.0); MYELOCYTES % (MANUAL) 1 % (0-0); NEUTROPHILS % (MANUAL) 33 % (40-74)
[2024-09-12 11:54] LABS: PLATELET ESTIMATE ADEQUATE; PLATELET MORPHOLOGY COMMENT NORMAL; RBC MORPHOLOGY COMMENT NORMAL
[2024-09-12] MEDS: SODIUM CHLORIDE 0.9% 1000ML 1,000 ML IV SCH (12:06)
[2024-09-15 10:50] LABS: ABG BASE EXCESS 1.0 mmol/L (-2 - 3); ABG HCO3 26 mmol/L (22-26); ABG OXYGEN SATURATION 99.0 % (95-98); ABG PCO2 44 mmHg (35-45); ABG PH 7.39 (7.35-7.45); ABG PO2 146 mmHg (80-105); ABG TCO2 28
[2024-09-15 10:50] LABS: ABG BASE EXCESS 1.0 mmol/L (-2 - 3); ABG HCO3 26 mmol/L (22-26); ABG OXYGEN SATURATION 99.0 % (95-98); ABG PCO2 47 mmHg (35-45); ABG PH 7.36 (7.35-7.45); ABG PO2 149 mmHg (80-105); ABG TCO2 28
[2024-09-15 10:50] LABS: ABG BASE EXCESS -2.0 mmol/L (-2 - 3); ABG HCO3 24 mmol/L (22-26); ABG OXYGEN SATURATION 99.0 % (95-98); ABG PCO2 43 mmHg (35-45); ABG PH 7.36 (7.35-7.45); ABG PO2 128 mmHg (80-105); ABG TCO2 25
[2024-09-15 10:50] LABS: ABG BASE EXCESS -4.0 mmol/L (-2 - 3); ABG HCO3 21 mmol/L (22-26); ABG OXYGEN SATURATION 100.0 % (95-98); ABG PCO2 33 mmHg (35-45); ABG PH 7.41 (7.35-7.45); ABG PO2 172 mmHg (80-105); ABG TCO2 22
[2024-09-15 10:51] LABS: ABG BASE EXCESS -1.0 mmol/L (-2 - 3); ABG HCO3 23 mmol/L (22-26); ABG OXYGEN SATURATION 91.0 % (95-98); ABG PCO2 35 mmHg (35-45); ABG PH 7.43 (7.35-7.45); ABG PO2 59 mmHg (80-105); ABG TCO2 24
== END 2024-09-12 15:53 | disposition expired | DRG 853 ==
LOC: ER 09:00 → ERHOLD 12:45 → MED/SURG2 14:07 → ICU 09-10 14:23
PROVIDERS: ADMIT Internal Medicine; ATTEND Internal Medicine
PROC: 0D9670Z Drainage of Stomach with Drainage Device, Via Natural or Artificial Opening (ICD-10-PCS; 2024-09-07)
PROC: 4A033R1 Measurement of Arterial Saturation, Peripheral, Percutaneous Approach (ICD-10-PCS; 2024-09-08)
PROC: B543ZZA Ultrasonography of Right Jugular Veins, Guidance (ICD-10-PCS; 2024-09-10)
PROC: 3E033XZ Introduction of Vasopressor into Peripheral Vein, Percutaneous Approach (ICD-10-PCS; 2024-09-10)
PROC: 0D1E0Z4 Bypass Large Intestine to Cutaneous, Open Approach (ICD-10-PCS; 2024-09-10)
PROC: 0DBN0ZZ Excision of Sigmoid Colon, Open Approach (ICD-10-PCS; 2024-09-10)
PROC: 0DBV0ZX Excision of Mesentery, Open Approach, Diagnostic (ICD-10-PCS; 2024-09-10)
PROC: 4A033R1 Measurement of Arterial Saturation, Peripheral, Percutaneous Approach (ICD-10-PCS; 2024-09-10)
PROC: 4A033R1 Measurement of Arterial Saturation, Peripheral, Percutaneous Approach (ICD-10-PCS; 2024-09-10)
PROC: 05HM33Z Insertion of Infusion Device into Right Internal Jugular Vein, Percutaneous Approach (ICD-10-PCS; principal; 2024-09-10 11:52)
PROC: 4A033R1 Measurement of Arterial Saturation, Peripheral, Percutaneous Approach (ICD-10-PCS; 2024-09-11)
PROC: 4A033R1 Measurement of Arterial Saturation, Peripheral, Percutaneous Approach (ICD-10-PCS; 2024-09-11)
PROC: 4A033R1 Measurement of Arterial Saturation, Peripheral, Percutaneous Approach (ICD-10-PCS; 2024-09-11)
PROC: 4A033R1 Measurement of Arterial Saturation, Peripheral, Percutaneous Approach (ICD-10-PCS; 2024-09-11)
PROC: 4A033R1 Measurement of Arterial Saturation, Peripheral, Percutaneous Approach (ICD-10-PCS; 2024-09-11)
PROC: 5A0935A Assistance with Respiratory Ventilation, Less than 24 Consecutive Hours, High Flow/Velocity Cannula (ICD-10-PCS; 2024-09-12)
PROC: 4A033R1 Measurement of Arterial Saturation, Peripheral, Percutaneous Approach (ICD-10-PCS; 2024-09-12)
PROC: 4A033R1 Measurement of Arterial Saturation, Peripheral, Percutaneous Approach (ICD-10-PCS; 2024-09-12)
DX: A41.9 Sepsis, unspecified organism (principal); J96.01 Acute respiratory failure with hypoxia; K55.032 Diffuse acute (reversible) ischemia of large intestine; I87.1 Compression of vein; N17.9 Acute kidney failure, unspecified; E87.1 Hypo-osmolality and hyponatremia; I82.890 Acute embolism and thrombosis of other specified veins; E87.20 Acidosis, unspecified; K56.699 Other intestinal obstruction unspecified as to partial versus complete obstruction; E87.3 Alkalosis; C25.7 Malignant neoplasm of other parts of pancreas; C78.6 Secondary malignant neoplasm of retroperitoneum and peritoneum; C78.5 Secondary malignant neoplasm of large intestine and rectum; E44.0 Moderate protein-calorie malnutrition; J98.11 Atelectasis; C77.2 Secondary and unspecified malignant neoplasm of intra-abdominal lymph nodes; E87.5 Hyperkalemia; I12.9 Hypertensive chronic kidney disease with stage 1 through stage 4 chronic kidney disease, or unspecified chronic kidney disease; N18.9 Chronic kidney disease, unspecified; R62.7 Adult failure to thrive; R57.1 Hypovolemic shock; D73.5 Infarction of spleen; I46.9 Cardiac arrest, cause unspecified; Z66 Do not resuscitate; E11.65 Type 2 diabetes mellitus with hyperglycemia; E11.69 Type 2 diabetes mellitus with other specified complication; E11.22 Type 2 diabetes mellitus with diabetic chronic kidney disease; Z79.84 Long term (current) use of oral hypoglycemic drugs; E86.0 Dehydration; K59.00 Constipation, unspecified; R00.0 Tachycardia, unspecified; Z68.22 Body mass index [BMI] 22.0-22.9, adult; E78.5 Hyperlipidemia, unspecified; Z96.0 Presence of urogenital implants; F17.200 Nicotine dependence, unspecified, uncomplicated; Z71.6 Tobacco abuse counseling; R31.9 Hematuria, unspecified; R82.81 Pyuria; Z71.3 Dietary counseling and surveillance; Z90.49 Acquired absence of other specified parts of digestive tract; Z79.899 Other long term (current) drug therapy
CPT/HCPCS: 36415; 36600; 71045; 74177; 80048; 80053; 80061; 81001; 82378; 82550; 82805; 82948; 83036; 83605; 83690; 83735; 84100; 84439; 84443; 84484; 85025; 85610; 85730; 86301; 87040; 87086; 88305; 88307; 88309; 88331; 88332; 93005; 94002; 94003; 94799; 99252; 99284; J0330; J1100; J1171; J2003; J2185; J2270; J2405; J2470; J2543; J2765; J7030; J7050; Q9967